=== PATIENT | female | born 1950 | race Caucasian/White ===

== ENCOUNTER 2018-01-20 08:30 | Inpatient (IN) | payer MEDICARE, OTHER ==
[2018-01-27 12:37] VITALS: BMI 29.7
[2018-02-01] MEDS ORDERED: Zolpidem Tartrate 5 MG TAB PO PRN ×2 (06:57→08:45)
[2018-02-01] MEDS ORDERED: Fentanyl 100 MCG/2 ML VIAL SLOW IVP PRN ×2 (06:57)
[2018-02-01] MEDS ORDERED: Ondansetron PF 4 MG/2 ML Vial IVP PRN ×2 (06:57→08:45)
[2018-02-01] MEDS ORDERED: Acetaminophen 325 MG TAB PO PRN (06:57)
[2018-02-01] MEDS ORDERED: traMADol HCl 50 MG TAB PO PRN ×2 (06:57→08:45)
[2018-02-01] MEDS ORDERED: diphenhydrAMINE 25 MG CAP PO PRN ×2 (06:57→08:45)
[2018-02-01] MEDS ORDERED: HYDROcodone/Acetaminophen 10/325 mg Tablet PO PRN ×2 (06:57)
[2018-02-01] MEDS ORDERED: Promethazine HCl 25 MG/ML VIAL IM PRN ×2 (06:57→08:45)
[2018-02-01] MEDS ORDERED: predniSONE 5 MG TAB PO PRN (06:59)
[2018-02-01] MEDS ORDERED: Vancomycin HCl 1.5 GM in Sodium Chloride 0.9% 250 ML 300 ML IVPB SCH (07:00)
[2018-02-01] MEDS ORDERED: CEFAZOLIN/Water 2 GM/20 ML SYRINGE SLOW IVP SCH (07:00)
[2018-02-01] MEDS ORDERED: Alendronate Sodium 70 mg Tablet PO SCH (07:00)
[2018-02-01] MEDS ORDERED: Tranexamic Acid 1,000 MG/10 ML VIAL ONE (07:16)
[2018-02-01] MEDS ORDERED: CEFAZOLIN 2 GM/50 ML BAG ONE (07:16)
[2018-02-01] MEDS ORDERED: Sodium Chloride 0.9% 100 ML ONE (07:16)
[2018-02-01] MEDS ORDERED: Fentanyl 100 MCG/2 ML VIAL ONE ×2 (07:28→09:00)
[2018-02-01] MEDS ORDERED: Midazolam HCl 2 mg/2 ml Vial ONE (07:28)
[2018-02-01] MEDS ORDERED: Propofol 500 MG/50 ML VIAL ONE (08:19)
[2018-02-01] MEDS ORDERED: Naloxone HCl 0.4 mg/ml Vial IVP PRN (08:45)
[2018-02-01] MEDS ORDERED: Bupivacaine 0.25% 10 ML VIAL EPIDURAL PRN (08:45)
[2018-02-01] MEDS ORDERED: HYDROcodone/Acetaminophen 5/325 mg Tablet PO PRN ×2 (08:45)
[2018-02-01] MEDS ORDERED: Promethazine HCl 25 MG SUPP PR PRN (08:45)
[2018-02-01] MEDS ORDERED: diphenhydrAMINE 50 MG/ML VIAL IM PRN (08:45)
[2018-02-01] MEDS ORDERED: Hydrocerin (Eucerin) Cream 120 gm Jar TOP PRN (08:45)
[2018-02-01] MEDS ORDERED: diphenhydrAMINE 50 MG/ML VIAL IVP PRN (08:45)
[2018-02-01] MEDS ORDERED: Naloxone HCl 0.4 mg/ml Vial IV PRN (08:45)
[2018-02-01] MEDS ORDERED: Bupivacaine HCl 0.5%/Epinephrine 1:200,000/PF 30 ml Vial ONE (09:02)
--- NOTE | 2018-02-01 12:20 | RAD ---
TWO VIEW RIGHT HIP: Indication: Post op total hip. FINDINGS: There is a right hip prosthesis without acute hardware complication identified. IMPRESSION: Post-operative right hip. POS: [facility]
--- NOTE | 2018-02-01 13:51 | OP ---
DATE OF PROCEDURE: 02/01/2018 PREOPERATIVE DIAGNOSIS: End-stage bicompartmental osteoarthritis, right hip. POSTOPERATIVE DIAGNOSIS: End-stage bicompartmental osteoarthritis, right hip. PROCEDURE PERFORMED: Press-fit right total hip arthroplasty. SURGEON: Alphonse Portillo MD. MACHINE SEWER: Dale Mckeon PA-C. ANESTHESIA: General via endotracheal tube augmented with indwelling epidural. COMPONENTS USED: [employer] Trident PSL press-fit 52 mm acetabular shell with a 10-degree polyethylene fixed bearing insert, Accolade press-fit size 5.5 hip stem with a Biolox ceramic 36 mm femoral head. ESTIMATED BLOOD LOSS: Less than 50. DRAINS: None. SPECIMENS: None. COMPLICATIONS: None. COUNTS: Correct. INPUT: 1200 crystalloid. OUTPUT: 500 mL of clear yellow urine. INDICATIONS FOR SURGERY: Mariana is a 68-year-old white female, who had had progressive right hip standing and walking for the last 5 to 7 years. She has failed conservative management and elected to proceed with total hip arthroplasty as a definitive treatment for her pain. PROCEDURE IN DETAIL: After informed consent was obtained in the preoperative holding area, the patient was taken to the operative suite where general anesthesia was induced. The patient was then positioned in the lateral decubitus position. The hip was then prepped and draped in usual sterile fashion. The patient received preoperative antibiotics. Prior to incision, time-out was called and all members of the surgical team agreed upon site, surgeon, and patient. After this, a longitudinal incision was made directly over the trochanter, noted by palpation extending 2 fingerbreadths above and below the trochanter. The deeper subcutaneous layer was undermined with Bovie electrocautery. The iliotibial band was encountered and incised sharply and the plane below this was developed bluntly. A Charnley retractor was placed to hold this opened. The lateral aspect of the trochanter and the abductor muscles were encountered and then reflected anteriorly off the trochanter using Bovie electrocautery. Once this was completed, the anterior capsule was then encountered and identified and copious capsulotomy was carried out, exposing the femoral neck and head. Dislocation maneuver was then performed and an in situ provisional neck cut was then made using the oscillating saw. Attention was then turned to acetabular preparation. Sequential reaming was carried out up to the appropriate diameter and a trial was then malleted into place with good firm resistance and no pullout. The permanent acetabular shell was then malleted squarely into place, as was the appropriate liner. Once completed, the wound was copiously irrigated and attention was then turned to femoral preparation. Flexion and external rotation were performed of the exposed thigh and femoral elevators were then placed at the proximal aspect of the wound. Canal finder was used to establish the length of the canal and sequential reaming was carried out, followed by broaching. Once the appropriate stability was established with the trial broaches with flexion, extension and rotational stability, we did trial with neutral and 2 mm offset incremental necks. Once the appropriate size was decided upon, with good stability noted with flexion, extension, internal and external rotation and shuck being negative, we removed the femoral trial broach and malletted into place the permanent prosthesis with good firm fit, which was also stable to rotation. Again, the hip felt very stable to flexion, extension, internal and external rotation. Leg lengths appeared near anatomic clinically and we were quite happy with prosthesis placement. Copious irrigation was then carried out through the entirety of the wound. Primary closure of the abductors was accomplished with interrupted #2 Vicryl [id number] stitches and the IT band was then closed with interrupted #2 Vicryl, oversewn with a #2 running barbed Quill stitch. Subcutaneous fascia was closed with running barbed Quill stitch and a subcuticular Monocryl barbed Quill stitch was used for skin closure and augmented with skin cement. A sterile dressing was applied. The procedure was terminated without any complication. All counts were correct. The patient was awakened in the operative suite and taken to the recovery room in stable condition. Job ID: [id number]
[2018-02-01] MEDS ORDERED: Ketorolac Tromethamine 30 MG/ML VIAL IVP SCH (14:00)
[2018-02-01] MEDS: Sodium Chloride 0.9% 1,000 ML IV SCH ×2 (14:30→17:09)
[2018-02-01] MEDS: Carvedilol 25 MG TAB PO SCH ×2 (14:31→20:58)
[2018-02-01] MEDS: Folic Acid 1 MG TAB PO SCH (14:31)
[2018-02-01] MEDS: Aspirin 81 mg Enteric Coated Tablet PO SCH ×2 (14:31→20:53)
[2018-02-01] MEDS: Calcium Carbonate + Vit D 1 TAB PO SCH ×2 (14:31→20:56)
[2018-02-01] MEDS: Gabapentin 300 MG CAP PO SCH ×2 (14:32→20:56)
[2018-02-01] MEDS: Ketorolac Tromethamine 30 MG/ML VIAL IVP SCH ×3 (14:32→23:43)
[2018-02-01] MEDS ORDERED: Artificial Tear Sol 15 ML BOT EA EYE PRN (14:55)
[2018-02-01] MEDS ORDERED: Diabetic Tussin 200 MG/10 ML UDCUP PO PRN (14:55)
[2018-02-01] MEDS ORDERED: Eucerin (Mineral Oil/Petrolatum,White) 30 gm Jar TOP PRN (14:55)
[2018-02-01] MEDS ORDERED: Sodium Chloride 0.65% Nasal 44 ML BOT EA NARE PRN (14:55)
[2018-02-01] MEDS ORDERED: Cepastat Lozenges 1 LOZ PO PRN (14:55)
[2018-02-01] MEDS ORDERED: Loperamide HCl 2 MG CAP PO PRN (14:55)
[2018-02-01] MEDS ORDERED: hydrALAZINE 20 MG/ML VIAL SLOW IVP PRN (14:55)
--- NOTE | 2018-02-01 14:55 | PDOC.PN ---
- Subjective Encounter Start Date: 02/01/18 Encounter Start Time: 16:00 -: old records requested/rev consulted for medical management Patient seen and examined. No new complaints. - Objective MAR Reviewed: Yes Vital Signs & Weight: Weight Weight 190 lb Additional Labs: old lab and record reviewed Radiology Reviewed by me: Yes (hip xray reviwed) Phys Exam - Physical Examination Constitutional: NAD HEENT: PERRLA, moist MMs, sclera anicteric Neck: no JVD, supple Respiratory: no wheezing, no rales, no rhonchi Cardiovascular: RRR, no significant murmur, no rub Gastrointestinal: soft, non-tender, no distention, positive bowel sounds hill+ , epidural in place Musculoskeletal: no edema, pulses present Neurological: non-focal, normal sensation, moves all 4 limbs Psychiatric: normal affect, A&O x 3 Skin: no rash, normal turgor Dx/Plan (1) Status post total hip replacement, right Code(s): Z96.641 - PRESENCE OF RIGHT ARTIFICIAL HIP JOINT Status: Acute (2) Hypertension Code(s): I10 - ESSENTIAL (PRIMARY) HYPERTENSION Status: Chronic (3) Osteoporosis Code(s): M81.0 - AGE-RELATED OSTEOPOROSIS W/O CURRENT PATHOLOGICAL FRACTURE Status: Chronic (4) Anxiety and depression Code(s): F41.9 - ANXIETY DISORDER, UNSPECIFIED; F32.9 - MAJOR DEPRESSIVE DISORDER, SINGLE EPISODE, UNSPECIFIED Status: Chronic (5) H/O malignant neoplasm of breast Code(s): Z85.3 - PERSONAL HISTORY OF MALIGNANT NEOPLASM OF BREAST Status: Chronic (6) Chronic systolic heart failure, ACC/AHA stage C Code(s): I50.22 - CHRONIC SYSTOLIC (CONGESTIVE) HEART FAILURE Status: Chronic (7) Cardiomyopathy Code(s): I42.9 - CARDIOMYOPATHY, UNSPECIFIED Status: Chronic (8) Rheumatoid arthritis Code(s): M06.9 - RHEUMATOID ARTHRITIS, UNSPECIFIED Status: Chronic - Plan cont current plan of care, plan discussed w/ family, PT/OT * continue aspirin for DVT prophylaxis as per protocol * pepcid for GI prophylaxis * epidural as per anesthesia * PT/OT as per [facility] protocol * medication reviewed as below * symptomatic treatment * pain controlled * code status- full code. * hold BP meds for SBP <120 Review of Systems - Review of Systems ENT: negative: Ear Pain, Ear Discharge, Nose Pain, Nose Discharge, Nose Congestion, Mouth Pain, Mouth Swelling, Throat Pain, Throat Swelling, Other Respiratory: negative: Cough, Dry, Shortness of Breath, Hemoptysis, SOB with Excertion, Pleuritic Pain, Sputum, Wheezing Cardiovascular: negative: chest pain, palpitations, orthopnea, paroxysmal nocturnal dyspnea, edema, light headedness, other Gastrointestinal: negative: Nausea, Vomiting, Abdominal Pain, Diarrhea, Constipation, Melena, Hematochezia, Other Genitourinary: negative: Dysuria, Frequency, Incontinence, Hematuria, Retention , Other Musculoskeletal: negative: Neck Pain, Shoulder Pain, Arm Pain, Back Pain, Hand Pain, Leg Pain, Foot Pain, Other Skin: negative: Rash, Lesions, Jose Alberto, Bruising, Other - Medications/Allergies Allergies/Adverse Reactions: Allergies Allergy/AdvReac Type Severity Reaction Status Date / Time pneumococcal vaccine Allergy arm swelled Verified 01/27/18 12:37 Medications: Current Medications Acetaminophen (Tylenol) 650 mg PO Q4H PRN PRN Reason: Headache/Fever or Pain Hydrocodone Bitart/Acetaminophen ([place] 5/325) 1 tab PO Q4H PRN PRN Reason: Mild Pain 0-3 Hydrocodone Bitart/Acetaminophen ([place] 5/325) 2 tab PO Q4H PRN PRN Reason: For Moderate Pain 4-6 Amitriptyline HCl (Elavil) 25 mg PO HS [facility] Aspirin (Ecotrin) 81 mg PO BID [facility] Last Admin: 02/01/18 14:31 Dose: Not Given Bupivacaine HCl (Marcaine) 5 ml EPIDURAL ONE PRN PRN Reason: UNCONTROLLED PAIN Stop: 02/01/18 23:00 Calcium/Vitamin D (Caltrate 600 + Vit D) 1 tab PO BID [facility] Last Admin: 02/01/18 14:31 Dose: Not Given Carvedilol (Coreg) 25 mg PO BID [facility] Last Admin: 02/01/18 14:31 Dose: Not Given Celecoxib (Celebrex) 200 mg PO DAILY [facility] Cholecalciferol (Vitamin D3) 2,000 units PO DAILY [facility] Last Admin: 02/01/18 14:31 Dose: Not Given Digoxin (Lanoxin) 0.125 mg PO QPM [facility] Diphenhydramine HCl (Benadryl) 25 mg PO Q3H PRN PRN Reason: Itching Diphenhydramine HCl (Benadryl) 25 mg IM Q3H PRN PRN Reason: Itching Diphenhydramine HCl (Benadryl) 25 mg IVP Q3H PRN PRN Reason: Itching Emollient Cream (Hydrocerin Cream) 0 gm TOP PRN PRN PRN Reason: Itching Ferrous Gluconate (Fergon) 324 mg PO BID-[facility] Folic Acid (Folvite) 3 mg PO DAILY [facility] Last Admin: 02/01/18 14:31 Dose: Not Given Gabapentin (Neurontin) 300 mg PO DAILY [facility] Last Admin: 02/01/18 14:32 Dose: Not Given Gabapentin (Neurontin) 600 mg PO HS [facility] Hydrochlorothiazide (Hydrochlorothiazide) 25 mg PO HS [facility] Sodium Chloride (Normal Saline 0.9%) 1,000 mls @ 100 mls/hr IV .Q10H [facility] Last Admin: 02/01/18 14:30 Dose: Not Given Cefazolin Sodium/Dextrose 2 gm (/ Device) 50 mls @ 100 mls/hr IVPB 0700,1500, 2300 [facility] Stop: 02/01/18 23:29 Fentanyl Citrate (Fentanyl/Bupivacaine) 100 mls @ 6 mls/hr EPIDURAL INF [facility] Iron/Minerals/Multivitamins (Theragran M) 1 tab PO DAILY [facility] Ketorolac Tromethamine (Toradol) 15 mg IVP Q6HR [facility] Stop: 02/03/18 06:01 Last Admin: 02/01/18 14:32 Dose: Not Given Methotrexate Sodium (Methotrexate) 0 mg IM .EVERY OTHER WEEK [facility] Miscellaneous Information (Communication Order-Pharmacy) 1 each FS ASDIR [facility] Naloxone HCl (Narcan) 0.2 mg IV Q5MIN PRN PRN Reason: RR <=8 OR OBTUNDED/UNAROUSABLE Naloxone HCl (Narcan) 0.1 mg IVP Q15MIN PRN PRN Reason: URINARY RETENTION Ondansetron HCl (Zofran) 4 mg IVP Q6H PRN PRN Reason: Nausea/Vomiting Prednisone (Prednisone) 2.5 mg PO BID PRN PRN Reason: Pain Promethazine HCl (Phenergan) 12.5 mg IM Q4H PRN PRN Reason: Nausea Promethazine HCl (Phenergan Suppository) 25 mg OR Q4H PRN PRN Reason: Nausea/Vomiting Senna/Docusate Sodium (Senokot S) 2 tab PO BID [facility] Sodium Chloride (Flush - Normal Saline) 10 ml IVF PRN PRN PRN Reason: Saline Flush Tamoxifen Citrate (Nolvadex) 20 mg PO DAILY [facility] Last Admin: 02/01/18 14:32 Dose: Not Given Tramadol HCl (Ultram) 50 mg PO Q6H PRN PRN Reason: Mild Pain 1-3 Tramadol HCl (Ultram) 100 mg PO Q6H PRN PRN Reason: Moderate Pain 4-6 Zolpidem Tartrate (Ambien) 5 mg PO HSPRN PRN PRN Reason: Insomnia
[2018-02-01] MEDS: CEFAZOLIN 2 GM/50 ML-DEXTROSE 2 GM in Premix Bag 1 BAG IVPB SCH ×2 (15:12→23:41)
[2018-02-01] MEDS: Amitriptyline HCl 25 MG TAB PO SCH (20:56)
[2018-02-01] MEDS: Digoxin 0.125 MG TAB PO SCH (20:56)
[2018-02-01] MEDS: Hydrochlorothiazide 25 MG TAB PO SCH (20:58)
[2018-02-02] MEDS: Sodium Chloride 0.9% 1,000 ML IV SCH ×3 (03:55→23:55)
[2018-02-02] MEDS: Fentanyl/Bupivacaine 100 ML EPIDURAL SCH ×2 (04:10→20:03)
[2018-02-02] MEDS: Ketorolac Tromethamine 30 MG/ML VIAL IVP SCH ×4 (05:09→23:16)
[2018-02-02 06:30] LABS: Hemoglobin 11.9 g/dL (12.0-16.0); Mean Corpuscular Hemoglobin 32.7 pg (27.0-31.0); Mean Corpuscular Volume 99.2 fL (78.0-98.0); Mean Platelet Volume 7.7 fL (7.4-10.4); Platelet Count 204 thou/uL (130-400); RBC Distribution Width 12.4 % (11.5-14.5); Red Blood Cell (RBC) Count 3.64 mill/uL (4.20-5.40); White Blood Cell (WBC) Count 10.9 thou/uL (4.8-10.8)
[2018-02-02] MEDS: Ferrous Gluconate 324 MG TAB PO SCH ×2 (08:05→17:05)
[2018-02-02] MEDS: CeleCOXIB 100 MG CAP PO SCH (08:06)
[2018-02-02] MEDS: Calcium Carbonate + Vit D 1 TAB PO SCH ×2 (08:06→20:02)
[2018-02-02] MEDS: Multivitamin W/ Minerals 1 TAB PO SCH (08:06)
[2018-02-02] MEDS: Folic Acid 1 MG TAB PO SCH (08:06)
[2018-02-02] MEDS: Senokot S 8.6-50 MG TAB PO SCH ×2 (08:07→20:02)
[2018-02-02] MEDS: Carvedilol 25 MG TAB PO SCH ×2 (08:08→20:02)
[2018-02-02] MEDS: Gabapentin 300 MG CAP PO SCH ×2 (08:09→20:02)
[2018-02-02] MEDS: Aspirin 81 mg Enteric Coated Tablet PO SCH ×2 (08:09→20:02)
--- NOTE | 2018-02-02 08:59 | PDOC.PN ---
- Subjective Encounter Start Date: 02/02/18 Encounter Start Time: 07:20 Patient seen and examined. No new complaints. No overnight events - Objective Resuscitation Status - Order Detail: 02/01/18 14:56 Resuscitation Status Routine Resuscitation Status: FULL: Full Resuscitation MAR Reviewed: Yes Vital Signs & Weight: Vital Signs (12 hours) Temp Pulse Resp BP Pulse Ox 02/02/18 08:02 98.3 F 82 16 97/63 92 L 02/02/18 03:46 99.2 F 90 18 103/64 95 02/02/18 00:02 98.5 F 89 18 100/62 95 Weight Weight 190 lb I&O: 02/01/18 02/02/18 02/03/18 06:59 06:59 06:59 Intake Total 2130 Output Total 800 Balance 1330 Result Diagrams: 02/02/18 06:02 Phys Exam - Physical Examination Constitutional: NAD HEENT: PERRLA, moist MMs, sclera anicteric Neck: no JVD, supple Respiratory: no wheezing, no rales, no rhonchi Cardiovascular: RRR, no significant murmur, no rub Gastrointestinal: soft, non-tender, no distention, positive bowel sounds epidural in place, hill+ Musculoskeletal: no edema, pulses present Neurological: non-focal, normal sensation, moves all 4 limbs Lymphatic: no nodes Psychiatric: normal affect, A&O x 3 Skin: no rash, normal turgor Dx/Plan (1) Status post total hip replacement, right Code(s): Z96.641 - PRESENCE OF RIGHT ARTIFICIAL HIP JOINT Status: Acute (2) Hypertension Code(s): I10 - ESSENTIAL (PRIMARY) HYPERTENSION Status: Chronic (3) Osteoporosis Code(s): M81.0 - AGE-RELATED OSTEOPOROSIS W/O CURRENT PATHOLOGICAL FRACTURE Status: Chronic (4) Anxiety and depression Code(s): F41.9 - ANXIETY DISORDER, UNSPECIFIED; F32.9 - MAJOR DEPRESSIVE DISORDER, SINGLE EPISODE, UNSPECIFIED Status: Chronic (5) H/O malignant neoplasm of breast Code(s): Z85.3 - PERSONAL HISTORY OF MALIGNANT NEOPLASM OF BREAST Status: Chronic (6) Chronic systolic heart failure, ACC/AHA stage C Code(s): I50.22 - CHRONIC SYSTOLIC (CONGESTIVE) HEART FAILURE Status: Chronic (7) Cardiomyopathy Code(s): I42.9 - CARDIOMYOPATHY, UNSPECIFIED Status: Chronic (8) Rheumatoid arthritis Code(s): M06.9 - RHEUMATOID ARTHRITIS, UNSPECIFIED Status: Chronic (9) Macrocytic anemia Code(s): D53.9 - NUTRITIONAL ANEMIA, UNSPECIFIED Status: Chronic - Plan cont current plan of care * medically stable * medication reviewed as below * symptomatic treatment * pain controlled * continue aspirin 81 mg po bid * epidural as per anesthesia * she is doing well * continue PT. Review of Systems - Review of Systems ENT: negative: Ear Pain, Ear Discharge, Nose Pain, Nose Discharge, Nose Congestion, Mouth Pain, Mouth Swelling, Throat Pain, Throat Swelling, Other Respiratory: negative: Cough, Dry, Shortness of Breath, Hemoptysis, SOB with Excertion, Pleuritic Pain, Sputum, Wheezing Cardiovascular: negative: chest pain, palpitations, orthopnea, paroxysmal nocturnal dyspnea, edema, light headedness, other Gastrointestinal: negative: Nausea, Vomiting, Abdominal Pain, Diarrhea, Constipation, Melena, Hematochezia, Other Genitourinary: negative: Dysuria, Frequency, Incontinence, Hematuria, Retention , Other Musculoskeletal: negative: Neck Pain, Shoulder Pain, Arm Pain, Back Pain, Hand Pain, Leg Pain, Foot Pain, Other Skin: negative: Rash, Lesions, Jose Alberto, Bruising, Other - Medications/Allergies Allergies/Adverse Reactions: Allergies Allergy/AdvReac Type Severity Reaction Status Date / Time pneumococcal vaccine Allergy arm swelled Verified 01/27/18 12:37 Medications: Current Medications Acetaminophen (Tylenol) 650 mg PO Q4H PRN PRN Reason: Headache/Fever or Pain Hydrocodone Bitart/Acetaminophen ([place] 5/325) 1 tab PO Q4H PRN PRN Reason: Mild Pain 0-3 Hydrocodone Bitart/Acetaminophen ([place] 5/325) 2 tab PO Q4H PRN PRN Reason: For Moderate Pain 4-6 Amitriptyline HCl (Elavil) 25 mg PO HS [facility] Last Admin: 02/01/18 20:56 Dose: 25 mg Artificial Tears (Tears Renewed 15ml Bottle) 2 drop EA EYE PRN PRN PRN Reason: Dry Eyes Aspirin (Ecotrin) 81 mg PO BID [facility] Last Admin: 02/02/18 08:09 Dose: 81 mg Calcium/Vitamin D (Caltrate 600 + Vit D) 1 tab PO BID [facility] Last Admin: 02/02/18 08:06 Dose: 1 tab Carvedilol (Coreg) 25 mg PO BID [facility] Last Admin: 02/02/18 08:08 Dose: 25 mg Celecoxib (Celebrex) 200 mg PO DAILY [facility] Last Admin: 02/02/18 08:06 Dose: 200 mg Cholecalciferol (Vitamin D3) 2,000 units PO DAILY [facility] Last Admin: 02/02/18 08:08 Dose: 2,000 units Digoxin (Lanoxin) 0.125 mg PO QPM [facility] Last Admin: 02/01/18 20:56 Dose: 0.125 mg Diphenhydramine HCl (Benadryl) 25 mg PO Q3H PRN PRN Reason: Itching Diphenhydramine HCl (Benadryl) 25 mg IM Q3H PRN PRN Reason: Itching Diphenhydramine HCl (Benadryl) 25 mg IVP Q3H PRN PRN Reason: Itching Emollient Cream (Hydrocerin Cream) 0 gm TOP PRN PRN PRN Reason: Itching Ferrous Gluconate (Fergon) 324 mg PO BID-[facility] Last Admin: 02/02/18 08:05 Dose: 324 mg Folic Acid (Folvite) 3 mg PO DAILY [facility] Last Admin: 02/02/18 08:06 Dose: 3 mg Gabapentin (Neurontin) 300 mg PO DAILY [facility] Last Admin: 02/02/18 08:09 Dose: 300 mg Gabapentin (Neurontin) 600 mg PO [facility] Last Admin: 02/01/18 20:56 Dose: 600 mg Guaifenesin (Robitussin Sf) 200 mg PO Q4H PRN PRN Reason: Cough Hydralazine HCl (Apresoline) 10 mg SLOW IVP Q4H PRN PRN Reason: SBP > 180 and HR < 70 Hydrochlorothiazide (Hydrochlorothiazide) 25 mg PO [facility] Last Admin: 02/01/18 20:58 Dose: 25 mg Sodium Chloride (Normal Saline 0.9%) 1,000 mls @ 100 mls/hr IV .Q10H [facility] Last Admin: 02/02/18 03:55 Dose: Not Given Fentanyl Citrate (Fentanyl/Bupivacaine) 100 mls @ 6 mls/hr EPIDURAL INF [facility] Last Admin: 02/02/18 04:10 Dose: 100 mls Iron/Minerals/Multivitamins (Theragran M) 1 tab PO DAILY [facility] Last Admin: 02/02/18 08:06 Dose: 1 tab Ketorolac Tromethamine (Toradol) 15 mg IVP Q6HR [facility] Stop: 02/03/18 06:01 Last Admin: 02/02/18 05:09 Dose: 15 mg Loperamide HCl (Imodium) 2 mg PO PRN PRN PRN Reason: Diarrhea/Loose Stools Methotrexate Sodium (Methotrexate) 20 mg IM .EVERY OTHER WEEK [facility] Mineral Oil/White Petrolatum (Eucerin Cream) 0 gm TOP BIDPRN PRN PRN Reason: Dry Skin Miscellaneous Information (Communication Order-Pharmacy) 1 each FS ASDIR [facility] Naloxone HCl (Narcan) 0.2 mg IV Q5MIN PRN PRN Reason: RR <=8 OR OBTUNDED/UNAROUSABLE Naloxone HCl (Narcan) 0.1 mg IVP Q15MIN PRN PRN Reason: URINARY RETENTION Ondansetron HCl (Zofran) 4 mg IVP Q6H PRN PRN Reason: Nausea/Vomiting Prednisone (Prednisone) 2.5 mg PO BID PRN PRN Reason: Pain Promethazine HCl (Phenergan) 12.5 mg IM Q4H PRN PRN Reason: Nausea Promethazine HCl (Phenergan Suppository) 25 mg PA Q4H PRN PRN Reason: Nausea/Vomiting Senna/Docusate Sodium (Senokot S) 2 tab PO BID [facility] Last Admin: 02/02/18 08:07 Dose: 2 tab Sodium Chloride (Flush - Normal Saline) 10 ml IVF PRN PRN PRN Reason: Saline Flush Sodium Chloride ([place] 0.65%) 0 ml EA NARE QIDPRN PRN PRN Reason: Nasal Congestion Tamoxifen Citrate (Nolvadex) 20 mg PO DAILY [facility] Last Admin: 02/02/18 08:08 Dose: 20 mg Throat Lozenges (Cepastat Lozenges) 1 deepak PO Q2H PRN PRN Reason: Sore Throat Tramadol HCl (Ultram) 50 mg PO Q6H PRN PRN Reason: Mild Pain 1-3 Tramadol HCl (Ultram) 100 mg PO Q6H PRN PRN Reason: Moderate Pain 4-6 Zolpidem Tartrate (Ambien) 5 mg PO HSPRN PRN PRN Reason: Insomnia
[2018-02-02] MEDS: Amitriptyline HCl 25 MG TAB PO SCH (20:02)
[2018-02-02] MEDS: Digoxin 0.125 MG TAB PO SCH (20:02)
[2018-02-02] MEDS: Hydrochlorothiazide 25 MG TAB PO SCH (20:02)
[2018-02-02] MEDS ORDERED: Bupivacaine 10 ML in Sodium Chloride 0.9% 90 ML EPIDURAL SCH (22:30)
[2018-02-03] MEDS ORDERED: Sodium Chloride 0.9% 500 ML IV SCH (06:30)
[2018-02-03 06:41] LABS: Hemoglobin 11.6 g/dL (12.0-16.0); Mean Corpuscular HGB CONC 33.9 g/dL (32.0-36.0); Mean Corpuscular Hemoglobin 33.5 pg (27.0-31.0); Mean Corpuscular Volume 98.7 fL (78.0-98.0); Platelet Count 172 thou/uL (130-400); RBC Distribution Width 12.3 % (11.5-14.5); Red Blood Cell (RBC) Count 3.46 mill/uL (4.20-5.40); White Blood Cell (WBC) Count 10.5 thou/uL (4.8-10.8)
[2018-02-03] MEDS: Ketorolac Tromethamine 30 MG/ML VIAL IVP SCH (06:44)
[2018-02-03] MEDS: Senokot S 8.6-50 MG TAB PO SCH ×2 (10:16→21:09)
[2018-02-03] MEDS: Ferrous Gluconate 324 MG TAB PO SCH ×2 (10:16→15:31)
[2018-02-03] MEDS: Multivitamin W/ Minerals 1 TAB PO SCH (10:16)
[2018-02-03] MEDS: Aspirin 81 mg Enteric Coated Tablet PO SCH ×2 (10:17→21:08)
[2018-02-03] MEDS: Folic Acid 1 MG TAB PO SCH (10:17)
[2018-02-03] MEDS: CeleCOXIB 100 MG CAP PO SCH (10:18)
[2018-02-03] MEDS: Calcium Carbonate + Vit D 1 TAB PO SCH ×2 (10:19→21:09)
[2018-02-03] MEDS: Carvedilol 25 MG TAB PO SCH (10:19)
[2018-02-03] MEDS: Sodium Chloride 0.9% 1,000 ML IV SCH (10:20)
[2018-02-03] MEDS: Gabapentin 300 MG CAP PO SCH ×2 (10:20→21:08)
--- NOTE | 2018-02-03 11:21 | PDOC.PN ---
- Subjective Encounter Start Date: 02/03/18 Encounter Start Time: 08:20 -: old records requested/rev Patient seen and examined. No overnight events today she feels weak, she is sleepy, tired - Objective Resuscitation Status - Order Detail: 02/01/18 14:56 Resuscitation Status Routine Resuscitation Status: FULL: Full Resuscitation MAR Reviewed: Yes Vital Signs & Weight: Vital Signs (12 hours) Temp Pulse Resp BP Pulse Ox 02/03/18 07:27 100.6 F H 83 18 88/52 L 93 L 02/03/18 04:15 99.1 F 86 16 106/54 L 94 L 02/03/18 00:20 99.1 F 79 18 110/67 92 L Weight Admit Weight 190 lb Weight 190 lb I&O: 02/02/18 02/03/18 02/04/18 06:59 06:59 06:59 Intake Total 2130 1500 Output Total 800 1100 Balance 1330 400 Result Diagrams: 02/03/18 06:07 Phys Exam - Physical Examination Constitutional: NAD HEENT: PERRLA, moist MMs, sclera anicteric Neck: no JVD, supple Respiratory: no wheezing, no rales, no rhonchi Cardiovascular: RRR, no significant murmur, no rub Gastrointestinal: soft, non-tender, no distention, positive bowel sounds Musculoskeletal: no edema, pulses present epidural in place, surgical site clean Neurological: non-focal, normal sensation, moves all 4 limbs Psychiatric: normal affect, A&O x 3 Skin: no rash, normal turgor Dx/Plan (1) Status post total hip replacement, right Code(s): Z96.641 - PRESENCE OF RIGHT ARTIFICIAL HIP JOINT Status: Acute (2) Hypertension Code(s): I10 - ESSENTIAL (PRIMARY) HYPERTENSION Status: Chronic (3) Osteoporosis Code(s): M81.0 - AGE-RELATED OSTEOPOROSIS W/O CURRENT PATHOLOGICAL FRACTURE Status: Chronic (4) Anxiety and depression Code(s): F41.9 - ANXIETY DISORDER, UNSPECIFIED; F32.9 - MAJOR DEPRESSIVE DISORDER, SINGLE EPISODE, UNSPECIFIED Status: Chronic (5) H/O malignant neoplasm of breast Code(s): Z85.3 - PERSONAL HISTORY OF MALIGNANT NEOPLASM OF BREAST Status: Chronic (6) Chronic systolic heart failure, ACC/AHA stage C Code(s): I50.22 - CHRONIC SYSTOLIC (CONGESTIVE) HEART FAILURE Status: Chronic (7) Cardiomyopathy Code(s): I42.9 - CARDIOMYOPATHY, UNSPECIFIED Status: Chronic (8) Rheumatoid arthritis Code(s): M06.9 - RHEUMATOID ARTHRITIS, UNSPECIFIED Status: Chronic (9) Macrocytic anemia Code(s): D53.9 - NUTRITIONAL ANEMIA, UNSPECIFIED Status: Chronic - Plan cont current plan of care, plan discussed w/ family, PT/OT * her weakness/tiredness is multifectorial, will prefer if epidural not needed then it can be removed * medication reviewed as below * symptomatic treatment * continue PT * discussed with * will monitor today * hold BP meds for low BP. Review of Systems - Review of Systems Constitutional: weakness. negative: fever, chills, sweats, malaise, other ENT: negative: Ear Pain, Ear Discharge, Nose Pain, Nose Discharge, Nose Congestion, Mouth Pain, Mouth Swelling, Throat Pain, Throat Swelling, Other Respiratory: negative: Cough, Dry, Shortness of Breath, Hemoptysis, SOB with Excertion, Pleuritic Pain, Sputum, Wheezing Cardiovascular: negative: chest pain, palpitations, orthopnea, paroxysmal nocturnal dyspnea, edema, light headedness, other Gastrointestinal: negative: Nausea, Vomiting, Abdominal Pain, Diarrhea, Constipation, Melena, Hematochezia, Other Genitourinary: negative: Dysuria, Frequency, Incontinence, Hematuria, Retention , Other Musculoskeletal: negative: Neck Pain, Shoulder Pain, Arm Pain, Back Pain, Hand Pain, Leg Pain, Foot Pain, Other - Medications/Allergies Allergies/Adverse Reactions: Allergies Allergy/AdvReac Type Severity Reaction Status Date / Time pneumococcal vaccine Allergy arm swelled Verified 01/27/18 12:37 Medications: Current Medications Acetaminophen (Tylenol) 650 mg PO Q4H PRN PRN Reason: Headache/Fever or Pain Hydrocodone Bitart/Acetaminophen (Farrar 5/325) 1 tab PO Q4H PRN PRN Reason: Mild Pain 0-3 Hydrocodone Bitart/Acetaminophen (Farrar 5/325) 2 tab PO Q4H PRN PRN Reason: For Moderate Pain 4-6 Amitriptyline HCl (Elavil) 25 mg PO HS NATHAN Last Admin: 02/02/18 20:02 Dose: 25 mg Artificial Tears (Tears Renewed 15ml Bottle) 2 drop EA EYE PRN PRN PRN Reason: Dry Eyes Aspirin (Ecotrin) 81 mg PO BID [facility] Last Admin: 02/03/18 10:17 Dose: 81 mg Calcium/Vitamin D (Caltrate 600 + Vit D) 1 tab PO BID [facility] Last Admin: 02/03/18 10:19 Dose: 1 tab Carvedilol (Coreg) 25 mg PO BID [facility] Last Admin: 02/03/18 10:19 Dose: Not Given Celecoxib (Celebrex) 200 mg PO DAILY [facility] Last Admin: 02/03/18 10:18 Dose: Not Given Cholecalciferol (Vitamin D3) 2,000 units PO DAILY [facility] Last Admin: 02/03/18 10:16 Dose: 2,000 units Digoxin (Lanoxin) 0.125 mg PO QPM [facility] Last Admin: 02/02/18 20:02 Dose: 0.125 mg Diphenhydramine HCl (Benadryl) 25 mg PO Q3H PRN PRN Reason: Itching Diphenhydramine HCl (Benadryl) 25 mg IM Q3H PRN PRN Reason: Itching Diphenhydramine HCl (Benadryl) 25 mg IVP Q3H PRN PRN Reason: Itching Emollient Cream (Hydrocerin Cream) 0 gm TOP PRN PRN PRN Reason: Itching Ferrous Gluconate (Fergon) 324 mg PO BID[facility] Last Admin: 02/03/18 10:16 Dose: 324 mg Folic Acid (Folvite) 3 mg PO DAILY [facility] Last Admin: 02/03/18 10:17 Dose: 3 mg Gabapentin (Neurontin) 300 mg PO DAILY [facility] Last Admin: 02/03/18 10:20 Dose: Not Given Gabapentin (Neurontin) 600 mg PO [facility] Last Admin: 02/02/18 20:02 Dose: 600 mg Guaifenesin (Robitussin Sf) 200 mg PO Q4H PRN PRN Reason: Cough Hydralazine HCl (Apresoline) 10 mg SLOW IVP Q4H PRN PRN Reason: SBP > 180 and HR < 70 Hydrochlorothiazide (Hydrochlorothiazide) 25 mg PO HS [facility] Last Admin: 02/02/18 20:02 Dose: 25 mg Sodium Chloride (Normal Saline 0.9%) 1,000 mls @ 100 mls/hr IV .Q10H [facility] Last Admin: 02/03/18 10:20 Dose: Not Given Bupivacaine HCl 10 ml/ Sodium (Chloride) 100 mls @ 6 mls/hr EPIDURAL INF [facility] Last Admin: 02/02/18 23:11 Dose: 100 mls Iron/Minerals/Multivitamins (Theragran M) 1 tab PO DAILY [facility] Last Admin: 02/03/18 10:16 Dose: 1 tab Loperamide HCl (Imodium) 2 mg PO PRN PRN PRN Reason: Diarrhea/Loose Stools Methotrexate Sodium (Methotrexate) 20 mg IM .EVERY OTHER WEEK [facility] Mineral Oil/White Petrolatum (Eucerin Cream) 0 gm TOP BIDPRN PRN PRN Reason: Dry Skin Miscellaneous Information (Communication Order-Pharmacy) 1 each FS ASDIR [facility] Naloxone HCl (Narcan) 0.2 mg IV Q5MIN PRN PRN Reason: RR <=8 OR OBTUNDED/UNAROUSABLE Naloxone HCl (Narcan) 0.1 mg IVP Q15MIN PRN PRN Reason: URINARY RETENTION Ondansetron HCl (Zofran) 4 mg IVP Q6H PRN PRN Reason: Nausea/Vomiting Prednisone (Prednisone) 2.5 mg PO BID PRN PRN Reason: Pain Promethazine HCl (Phenergan) 12.5 mg IM Q4H PRN PRN Reason: Nausea Promethazine HCl (Phenergan Suppository) 25 mg [place] Q4H PRN PRN Reason: Nausea/Vomiting Senna/Docusate Sodium (Senokot S) 2 tab PO BID [facility] Last Admin: 02/03/18 10:16 Dose: 2 tab Sodium Chloride (Flush - Normal Saline) 10 ml IVF PRN PRN PRN Reason: Saline Flush Sodium Chloride ([place] Nasal [place] 0.65%) 0 ml EA NARE QIDPRN PRN PRN Reason: Nasal Congestion Tamoxifen Citrate (Nolvadex) 20 mg PO DAILY [facility] Last Admin: 02/03/18 10:17 Dose: 20 mg Throat Lozenges (Cepastat Lozenges) 1 deepak PO Q2H PRN PRN Reason: Sore Throat Tramadol HCl (Ultram) 50 mg PO Q6H PRN PRN Reason: Mild Pain 1-3 Tramadol HCl (Ultram) 100 mg PO Q6H PRN PRN Reason: Moderate Pain 4-6 Zolpidem Tartrate (Ambien) 5 mg PO HSPRN PRN PRN Reason: Insomnia
--- NOTE | 2018-02-03 13:26 | RAD ---
PORTABLE CHEST: 02/03/18 HISTORY: CHF. COMPARISON: 01/27/18. There is hazy infiltrate in both lower lobes which appears new. Some of this may represent atelectasi s; however, inflammatory infiltrates should be considered. There is mild vascular engorgement. Mild c ardiomegaly. IMPRESSION: Evidence of new bibasilar infiltrates and/or atelectasis with mild vascular congestion. POS: [facility]
[2018-02-03] MEDS ORDERED: Furosemide 20 MG/2 ML VIAL SLOW IVP SCH (15:45)
[2018-02-03 16:46] LABS: Lactic Acid 0.8 mmol/L (0.5-2.2)
[2018-02-03 16:49] LABS: Anion Gap 11 mmol/L (10-20); BUN (Urea Nitrogen) 17 mg/dL (9.8-20.1); Calc. Creatinine Clearance 78 mL/min (70-130); Calcium 9.4 mg/dL (7.8-10.44); Carbon Dioxide 30 mmol/L (23-31); Chloride 97 mmol/L (98-107); Estimated GFR-MDRD 61; Glucose 101 mg/dL (80-115); Potassium 3.9 mmol/L (3.5-5.1); Sodium 134 mmol/L (136-145)
[2018-02-03] MEDS: Digoxin 0.125 MG TAB PO SCH (21:08)
[2018-02-03] MEDS: Amitriptyline HCl 25 MG TAB PO SCH (21:08)
[2018-02-03] MEDS: traMADol HCl 50 MG TAB PO PRN (21:11)
[2018-02-04 06:37] LABS: #Eosinphils 0.2 thou/uL (0.0-0.7); #Lymphocytes 1.3 thou/uL (1.20-3.40); #Neutrophils 6.5 thou/uL (1.40-6.50); %Basophils 0.4 % (0.0-1.0); %Eosinophils 2.1 % (0.0-10.0); %Lymphocytes 14.9 % (21.0-51.0); %Monocytes 10.6 % (0.0-10.0); Hemoglobin 10.4 g/dL (12.0-16.0); Mean Corpuscular HGB CONC 34.1 g/dL (32.0-36.0); Mean Corpuscular Hemoglobin 33.2 pg (27.0-31.0); Mean Corpuscular Volume 97.5 fL (78.0-98.0); Platelet Count 161 thou/uL (130-400); RBC Distribution Width 12.1 % (11.5-14.5); Red Blood Cell (RBC) Count 3.13 mill/uL (4.20-5.40)
[2018-02-04 06:53] LABS: Anion Gap 11 mmol/L (10-20); BUN (Urea Nitrogen) 12 mg/dL (9.8-20.1); Calc. Creatinine Clearance 95 mL/min (70-130); Calcium 8.8 mg/dL (7.8-10.44); Carbon Dioxide 29 mmol/L (23-31); Chloride 98 mmol/L (98-107); Estimated GFR-MDRD 76; Glucose 90 mg/dL (80-115); Potassium 3.3 mmol/L (3.5-5.1); Sodium 135 mmol/L (136-145)
[2018-02-04] MEDS ORDERED: Potassium Chloride 20 MEQ TAB PO SCH (07:30)
[2018-02-04] MEDS ORDERED: Furosemide 20 MG/2 ML VIAL SLOW IVP SCH (08:00)
[2018-02-04 08:35] LABS: ALT (SGPT) 10 U/L (8-55); AST (SGOT) 23 U/L (5-34); Albumin 2.6 g/dL (3.4-4.8); Alkaline Phosphatase 33 U/L (40-150); Bilirubin, Direct 0.3 mg/dL (0.1-0.3); Bilirubin, Total 0.6 mg/dL (0.2-1.2); Protein, Total 5.2 g/dL (6.0-8.3)
[2018-02-04] MEDS: Calcium Carbonate + Vit D 1 TAB PO SCH (09:47)
[2018-02-04] MEDS: Folic Acid 1 MG TAB PO SCH (09:47)
[2018-02-04] MEDS: Ferrous Gluconate 324 MG TAB PO SCH (09:47)
[2018-02-04] MEDS: CeleCOXIB 100 MG CAP PO SCH (09:47)
[2018-02-04] MEDS: Gabapentin 300 MG CAP PO SCH (09:48)
[2018-02-04] MEDS: Aspirin 81 mg Enteric Coated Tablet PO SCH (09:48)
[2018-02-04] MEDS: Multivitamin W/ Minerals 1 TAB PO SCH (09:48)
[2018-02-04] MEDS: Senokot S 8.6-50 MG TAB PO SCH (09:48)
[2018-02-04] MEDS: traMADol HCl 50 MG TAB PO PRN (10:10)
--- NOTE | 2018-02-04 11:28 | CON ---
DATE OF CONSULTATION: 02/03/2018 REASON FOR CONSULTATION: Heart failure. HISTORY OF PRESENT ILLNESS: This is a very pleasant 68-year-old woman, who was seen and evaluated in the past. She was last seen in 2016. She is from [place], [place], [place] is near [place]. Her instructional support specialist is Dr. Dane Jade. She was last seen and evaluated in 2016, where she had an LVEF of 35% to 40%. This appeared to be slightly improved from previous. She did undergo coronary angiography in 2016. They did not suggest significant coronary artery disease. She recently had hip replacement. In the postoperative period, she did well for the first 24 hours. After 24 hours, she had increased confusion in addition to somnolence. No significant episodes of shortness of breath, chest pain, pressure, or other associated symptoms. There was concern for recurrent heart failure. This is how she presented initially in 2016. PAST MEDICAL HISTORY: As above, including hypertension, knee surgery, appendectomy, recent hip surgery, hysterectomy, hemorrhoidectomy, lumpectomy, hypertension. ALLERGIES: PENICILLIN. HOME MEDICATIONS: Include, 1. Celebrex. 2. Alendronate. 3. Gabapentin. 4. Folic acid. 5. Tamoxifen. 6. Gabapentin. 7. Carvedilol. 8. Tramadol. 9. Hydrochlorothiazide. 10. Digoxin. 11. Amitriptyline. 12. Prednisone. 13. Actemra. REVIEW OF SYSTEMS: Ten-point review of systems is reviewed and is negative. PHYSICAL EXAMINATION: GENERAL: The patient is a pleasant female, who is in no acute distress. The patient appears their stated age. VITAL SIGNS: Blood pressure 105/66, pulse 97, temperature 100.8. NEUROLOGIC: The patient is alert and oriented x3 with no focal neurologic deficits. HEENT: Sclerae without icterus. Mouth has moist mucous membranes with normal pallor. NECK: No JVD. Carotid upstroke brisk. No bruits bilaterally. LUNGS: Clear to auscultation with unlabored respirations. No crackles noted bilaterally. BACK: No scoliosis or kyphosis. CARDIAC: Regular rate and rhythm with normal S1 and S2. No S3 or S4 noted. No significant rubs, murmurs, thrills, or gallops noted throughout the precordium. PMI is not displaced. There is no parasternal heave. ABDOMEN: Soft, nontender, nondistended. No peritoneal signs present. No hepatosplenomegaly. No abnormal striae. EXTREMITIES: 2+ femoral and 2+ dorsalis pedis pulses. No cyanosis, clubbing, or edema. SKIN: No gross abnormalities. Patient is lungs are crackles noted bilaterally. PERTINENT LABS: Hemoglobin 10.4, platelet count 161. Creatinine 0.75, potassium 3.9. BNP of 45. IMPRESSION: 1. Acute on chronic systolic heart failure. 2. Recent hip surgery. RECOMMENDATIONS: Ms. Pak does have chest x-ray suggesting atelectasis versus mild pulmonary congestion. Despite her being low, she does have crackles noted bilaterally. She has received one dose of Lasix 20 mg IV. She has had significant improvement. We will reassess in a.m. and likely give another dose of 20 mg IV. All of her symptoms may be multifactorial. She has had little sleep, may also be consistent with sundowning and mild congestive heart failure. This may also be the residual from recent anesthesia. She is improving. Job ID: [id number]
[2018-02-04 11:33] VITALS: BP 101/60; TEMP 98.4
--- NOTE | 2018-02-04 12:52 | PRG ---
DATE OF SERVICE: 02/04/2018 DISCHARGE SUMMARY/PROGRESS NOTE: PRIMARY CARE PHYSICIAN: [facility] Call admission. DISCHARGE DISPOSITION: Home. PRIMARY DISCHARGE DIAGNOSES: 1. Status post right total hip replacement. 2. Generalized weakness with hypotension. 3. Hypokalemia. SECONDARY DISCHARGE DIAGNOSES: 1. Cardiomyopathy. 2. Chronic systolic heart failure with stage C. 3. Anxiety and depression. 4. Rheumatoid arthritis. 5. History of malignant neoplasm of breast. 6. Hypertension. 7. Macrocytic anemia. 8. Osteoporosis. 9. Osteoarthritis. PRIMARY PROCEDURE/OPERATION: Right total hip replacement. RADIOLOGIST INVESTIGATION: Hip x-ray, chest x-ray showed pulmonary vascular congestion and atelectasis. SIGNIFICANT LABORATORY DATA: WBC 9.0, hemoglobin 10.4, and platelet 161. Sodium 135, potassium 3.3, BUN 12, and creatinine 0.75. LFT normal. BNP 45.7, cortisol 10.2. Lactic acid 0.8. DISCHARGE MEDICATIONS: The patient will continue all her previous medications. I have specifically advised the patient to hold on blood pressure medication if the blood pressure is less than 120/80. The patient is on following medications: 1. Alendronate 70 mg weekly. 2. Amitriptyline 25 mg at bedtime. 3. Calcium with vitamin D 1 tablet p.o. b.i.d. 4. Coreg 25 mg p.o. b.i.d. 5. Celebrex 200 mg p.o. daily. 6. Vitamin D3 of 2000 units p.o. daily. 7. Digoxin 125 mcg p.o. daily. 8. Folic acid 2 mg daily. 9. Gabapentin 600 mg p.o. at bedtime and 300 mg in the morning. 10. Hydrochlorothiazide 25 mg p.o. daily. 11. Prednisone 2.5 mg b.i.d. p.r.n. 12. Tamoxifen 20 mg daily. 13. Tocilizumab 200 mg IV per bag as directed. 14. Tramadol 200 mg p.o. daily. 15. [place] 5 one tablet q.4 hourly p.r.n. 16. Aspirin 81 mg p.o. b.i.d. CONTRAINDICATION: None. CODE STATUS: Full code. INPATIENT NET APPLICATION SUPPORT SPECIALIST: Dr. Portillo was primary while in the hospital, [employer] Team was consulted for medical comanagement. Dr. Hunter was consulted while in the hospital. TEST RESULTS PENDING ON DISCHARGE: None. ALLERGIES: PNEUMOCOCCAL VACCINE. DISCHARGE PLAN: Post hospital, the patient will follow up with Dr. Portillo on February 17, 2018, at 3:30 p.m. HOSPITAL COURSE: A 68-year-old female with above-mentioned medical problem, who was electively admitted for right total hip replacement, which was done by Dr. Portillo. The patient did not have any complication while in the hospital. She had epidural in place. Her pain was controlled with pain medication. Postoperative day 1, the patient was doing great, but postoperative day 2, the patient was feeling generalized weakness and was having low-grade fever. We did a chest x-ray, which showed pulmonary vascular congestion. She was also having relatively low blood pressure and that is why she was given bolus of fluid that made her pulmonary vascular congestion. Dr. Hunter was consulted, and he gave the patient Lasix, and after Lasix, the patient's condition significantly improved. We held her blood pressure medication. Necessary patient education about holding blood pressure medication at home was also discussed with the patient and her . While in hospital, medical team was consulted for medical comanagement. Her all medical problems remained stable except for relatively low blood pressure and generalized weakness, but that also improved by the time of discharge. The patient had epidural, which was removed before discharge. I have seen and examined the patient at bedside today. Plan of care discussed with the patient and her at bedside. REVIEW OF SYSTEMS: All review of systems reviewed with her and negative. PHYSICAL EXAMINATION: VITAL SIGNS: Currently, temperature 98.4, pulse 79, respiratory rate 18, saturation 92% on room air, blood pressure 107/67, and weight 190 pounds. GENERAL: The patient is currently alert and awake. No obvious acute distress. HEENT: Head, normocephalic and atraumatic. Eyes; pupils round and reactive to light. Extraocular muscle intact. ENT; oropharynx within normal limits. Moist mucous membranes. No oral lesion. No pharyngeal erythema. No exudate. NECK: Supple. No JVD. No thyromegaly. No carotid bruit. No jugular venous distention. LUNGS: Clear to auscultation without any rhonchi. Rales noted on the right lung base. ABDOMEN: Soft and benign. EXTREMITIES: No edema. Surgical site is clean and healthy. We will sign off. Job ID: [id number]
== END 2018-02-04 14:20 | disposition home or self-care (01) | DRG 469 ==
LOC: SURG A 02-01 06:16 → SJJU 02-01 13:12
PROVIDERS: ADMIT Orthopaedic Surgery; ATTEND Orthopaedic Surgery
PROC: 0SR90JA Replacement of Right Hip Joint with Synthetic Substitute, Uncemented, Open Approach (ICD-10-PCS; principal; 2018-02-01)
DX: M16.11 Unilateral primary osteoarthritis, right hip (principal); I50.23 Acute on chronic systolic (congestive) heart failure; I42.9 Cardiomyopathy, unspecified; M81.0 Age-related osteoporosis without current pathological fracture; F41.9 Anxiety disorder, unspecified; F32.9 Major depressive disorder, single episode, unspecified; I11.0 Hypertensive heart disease with heart failure; Z85.3 Personal history of malignant neoplasm of breast; D53.9 Nutritional anemia, unspecified
CPT/HCPCS: 36415; 71045; 80048; 80076; 82533; 83605; 83880; 85025; 85027; G8978-GP-CK; G8979-GP-CI; G8987-GO-CK; G8988-GO-CI; J0670; J1885; J1940; J2250; J2704; J3010; J3370; J3490; J7050

== ENCOUNTER 2018-01-27 12:17 | Outpatient (CLI) | payer MEDICARE, OTHER ==
[2018-01-27 14:11] LABS: #Eosinphils 0.2 thou/uL (0.0-0.7); #Monocytes 0.7 thou/uL (0.11-0.59); #Neutrophils 5.3 thou/uL (1.40-6.50); %Basophils 0.5 % (0.0-1.0); %Eosinophils 2.6 % (0.0-10.0); %Lymphocytes 24.7 % (21.0-51.0); %Monocytes 8.4 % (0.0-10.0); %Neutrophils 63.9 % (42.0-75.0); Hemoglobin 14.1 g/dL (12.0-16.0); Mean Corpuscular HGB CONC 33.1 g/dL (32.0-36.0); Mean Corpuscular Volume 99.8 fL (78.0-98.0); Mean Platelet Volume 7.9 fL (7.4-10.4); Platelet Count 226 thou/uL (130-400); RBC Distribution Width 12.6 % (11.5-14.5); Red Blood Cell (RBC) Count 4.27 mill/uL (4.20-5.40); White Blood Cell (WBC) Count 8.3 thou/uL (4.8-10.8)
[2018-01-27 14:14] LABS: Bilirubin Negative (Negative); Blood, Urine Negative (Negative); Clarity CLEAR (Clear); Glucose, Urine (Dipstick) Negative (Negative); Leukocyte Negative (Negative); Nitrite Negative (Negative); Protein, Urine (Dipstick) Negative (Neg-Trace); Specific Gravity, Urine 1.008 (1.002-1.036); Urobilinogen 0.2 mg/dL (0.2-1.0); pH, Urine 6.5 (5.0-9.0)
[2018-01-27 14:15] LABS: Prothrombin Time 12.9 SEC (12.0-14.7)
[2018-01-27 14:21] LABS: Bacteria/HPF None Seen HPF (None Seen); Hyaline Casts/LPF 0-3 HYALINE CAST LPF (0-3 Hyaline); Pathc Cast-AUWi Flag 0.72 (0-2.49); RBC/HPF None Seen HPF (0-3); Squamous Epithelial 0-3 HPF (0-3); WBC/HPF None Seen HPF (0-3)
[2018-01-27 14:28] LABS: Anion Gap 10 mmol/L (10-20); BUN (Urea Nitrogen) 15 mg/dL (9.8-20.1); Calc. Creatinine Clearance 0 mL/min (70-130); Calcium 9.2 mg/dL (7.8-10.44); Carbon Dioxide 29 mmol/L (23-31); Chloride 104 mmol/L (98-107); Estimated GFR-MDRD 55; Glucose 83 mg/dL (80-115); Potassium 3.7 mmol/L (3.5-5.1); Sodium 139 mmol/L (136-145)
--- NOTE | 2018-01-27 14:37 | RAD ---
TWO VIEWS OF THE CHEST: Date: 01-27-18 Comparison: None. History: Pre-operative patient. FINDINGS: Post-operative clips overlie the lateral lower left hemithorax. Calcified granuloma overlies the righ t upper lobe region. Atherosclerotic calcification of the aortic arch noted. Heart and mediastinal co ntours are grossly unremarkable. No pneumothorax, pleural fluid, focal consolidation or alveolar marisol a. IMPRESSION: No acute findings. POS: [facility]
== END 2018-01-27 12:18 | disposition home or self-care (01) ==
LOC: LABBT 12:17
PROVIDERS: ATTEND Orthopaedic Surgery
DX: Z01.818 Encounter for other preprocedural examination (principal); M16.11 Unilateral primary osteoarthritis, right hip
CPT/HCPCS: 71046; 80048; 81001; 85025; 85610; 86850; 86900; 86901; 87081

== ENCOUNTER 2023-12-31 13:42 | Outpatient (CLI) | payer MEDICARE, OTHER | END 2023-12-31 13:43 | disposition home or self-care (01) | LOC: CT 13:42 | PROVIDERS: ATTEND Orthopaedic Surgery | DX: M17.12 Unilateral primary osteoarthritis, left knee (principal) ==

== ENCOUNTER 2024-01-03 08:49 | Outpatient (CLI) | payer MEDICARE, OTHER ==
[2024-01-03 10:51] LABS: #Basophils 0.04 10x3/uL (0.0-0.2); %Basophils 0.8 % (0.0-1.0); %Eosinophils 4.4 % (0.0-10.0); %Lymphocytes 33.1 % (21.0-51.0); %Monocytes 9.9 % (0.0-10.0); %Neutrophils 51.4 % (42.0-75.0); Hematocrit 39.9 % (36.0-47.0); Hemoglobin 12.8 g/dL (12.0-16.0); Mean Corpuscular HGB CONC 32.1 g/dL (32.0-36.0); Mean Corpuscular Hemoglobin 30.8 pg (27.0-31.0); Mean Corpuscular Volume 96.1 fL (78.0-98.0); Mean Platelet Volume 10.3 fL (7.4-10.4); Platelet Count 239 10x3/uL (130-400); RBC Distribution Width 13.2 % (11.5-14.5); Red Blood Cell (RBC) Count 4.15 mill/uL (4.20-5.40)
[2024-01-03 11:01] LABS: Bilirubin Negative (Negative); Blood, Urine Trace (Negative); Clarity Clear (Clear); Glucose, Urine (Dipstick) Normal (Negative); Ketone, Urine Negative (Negative); Leukocyte 250 Leu/uL (Negative); Nitrite Negative (Negative); Protein, Urine (Dipstick) Negative (Neg-Trace); Specific Gravity, Urine 1.003 (1.002-1.036); Urobilinogen Normal mg/dL (Less than 2); pH, Urine 6.5 (5.0-9.0)
[2024-01-03 11:11] LABS: INR-International Normal Ratio 1.1; Prothrombin Time 13.7 sec (12.0-14.7)
[2024-01-03 12:04] LABS: Anion Gap 13 mmol/L (10-20); BUN (Urea Nitrogen) 14 mg/dL (9.8-20.1); Calc. Creatinine Clearance 0 mL/min (70-130); Calcium 9.9 mg/dL (7.8-10.44); Carbon Dioxide 28 mmol/L (23-31); Chloride 100 mmol/L (98-107); Estimated GFR 67; Glucose 83 mg/dL (83-110); Potassium 3.8 mmol/L (3.5-5.1); Sodium 137 mmol/L (136-145)
== END 2024-01-03 08:50 | disposition home or self-care (01) ==
LOC: LABBT 08:49
PROVIDERS: ATTEND Orthopaedic Surgery
DX: Z01.818 Encounter for other preprocedural examination (principal); M17.12 Unilateral primary osteoarthritis, left knee
CPT/HCPCS: 71046; 80048; 81003; 85025; 85610; 87081; 93005; 93010

== ENCOUNTER 2024-01-05 05:29 | Inpatient (IN) | payer MEDICARE, OTHER ==
[2024-01-05] MEDS ORDERED: Vancomycin (BATCH) 1.5 GM/300 ML BAG ONE (06:33)
[2024-01-05] MEDS ORDERED: Tranexamic Acid 1,000 MG/10 ML VIAL ONE ×2 (06:33→09:45)
[2024-01-05] MEDS ORDERED: Sodium Chloride 0.9% 100 ML ONE (06:33)
[2024-01-05] MEDS ORDERED: Midazolam HCl 2 mg/2 ml Vial ONE (06:39)
[2024-01-05] MEDS ORDERED: fentaNYL 50 mcg/mL 1 mL Vial ONE ×2 (06:39→09:06)
[2024-01-05] MEDS ORDERED: PROPOFOL 20 ML ONE ×2 (06:48→08:20)
[2024-01-05] MEDS ORDERED: Ondansetron PF 4 MG/2 ML Vial ONE (06:48)
[2024-01-05] MEDS ORDERED: Dexamethasone 4 mg/ml Vial ONE (06:48)
[2024-01-05] MEDS ORDERED: fentaNYL PF 100 MCG/2 ML SYRINGE ONE (06:48)
[2024-01-05] MEDS ORDERED: Bupivacaine HCl 0.5%/Epinephrine 1:200,000/PF 30 ml Vial ONE (07:05)
[2024-01-05] MEDS ORDERED: Bupivacaine 0.25% HCL 30 ML VIAL ONE (07:13)
[2024-01-05] MEDS ORDERED: CEFAZOLIN 2 GM VIAL ONE (07:13)
[2024-01-05] MEDS ORDERED: MINERAL OIL/WHITE PETROLATUM 3.5 GM TUBE ONE (07:39)
[2024-01-05] MEDS ORDERED: PHENYLEPHRINE-NS 100 MCG/ML 10 ML SYRINGE ONE (07:45)
[2024-01-05] MEDS ORDERED: Promethazine HCl 25 MG/ML VIAL IM PRN ×3 (07:51→09:42)
[2024-01-05] MEDS ORDERED: Ondansetron HCl/PF 4 MG/2 ML Vial IVP PRN (07:51)
[2024-01-05] MEDS ORDERED: Ropivacaine 0.2% 550 ML 550 ML NERVE BLCK SCH (08:00)
[2024-01-05] MEDS ORDERED: traMADol HCl 50 MG TAB PO PRN (08:00)
[2024-01-05] MEDS ORDERED: fentaNYL 50 mcg/mL 1 mL Vial SLOW IVP PRN (08:00)
[2024-01-05] MEDS ORDERED: Zolpidem Tartrate 5 MG TAB PO PRN ×2 (08:00→09:42)
[2024-01-05] MEDS ORDERED: Ondansetron PF 4 MG/2 ML Vial IVP PRN (08:00)
[2024-01-05] MEDS ORDERED: Sevoflurane 250 ML INH ANEST BOTTLE ONE (08:07)
[2024-01-05] MEDS ORDERED: Bupivacaine PF 0.5% 30 ML VIAL ONE (08:08)
[2024-01-05] MEDS ORDERED: Lidocaine 1% (PF) 30 ML VIAL ONE (08:08)
[2024-01-05] MEDS ORDERED: HYDROmorphone 2 MG/ML VIAL ONE (09:41)
[2024-01-05] MEDS ORDERED: diphenhydrAMINE 25 MG CAP PO PRN (09:42)
[2024-01-05] MEDS ORDERED: Ketorolac Tromethamine 30 MG (1 mL) VIAL ONE (09:45)
[2024-01-05] MEDS ORDERED: Tranexamic Acid 1,000 MG in Sodium Chloride 0.9% 100 ML IVPB SCH (09:45)
[2024-01-05 13:31] VITALS: BMI 27.3
[2024-01-05] MEDS: HYDROcodone/Acetaminophen 10/325 mg Tablet PO PRN (15:21)
[2024-01-05] MEDS: CEFAZOLIN 2 GM in Sodium Chloride 0.9% 100 ML IVPB SCH (15:23)
[2024-01-05] MEDS: Ketorolac Tromethamine 30 MG (1 mL) VIAL IVP SCH (15:23)
[2024-01-05] MEDS: Sodium Chloride 0.9% 1,000 ML IV SCH (15:35)
[2024-01-05] MEDS: Ondansetron PF 4 MG/2 ML Vial IVP PRN (16:56)
[2024-01-05] MEDS: Vancomycin (BATCH) 1.5 GM in Premix 1 BAG IVPB SCH (18:00)
[2024-01-05] MEDS: Calcium Carbonate 600 MG + Vit D TAB PO SCH (21:04)
[2024-01-05] MEDS: Gabapentin 300 MG CAP PO SCH (21:05)
[2024-01-05] MEDS: Aspirin 81 mg Enteric Coated Tablet PO SCH (21:06)
[2024-01-05] MEDS: Carvedilol 6.25 MG TAB PO SCH (21:06)
[2024-01-05] MEDS: Amitriptyline HCl 25 MG TAB PO SCH (21:07)
[2024-01-05] MEDS: traMADol HCl 50 MG TAB PO PRN (21:15)
[2024-01-05] MEDS: sulfaSALAzine 500 MG TAB PO SCH (23:31)
[2024-01-06] MEDS: HYDROcodone/Acetaminophen 10/325 mg Tablet PO PRN (01:55)
[2024-01-06 05:56] LABS: Hematocrit 29.8 % (36.0-47.0); Hemoglobin 9.4 g/dL (12.0-16.0); Mean Corpuscular HGB CONC 31.5 g/dL (32.0-36.0); Mean Corpuscular Hemoglobin 30.3 pg (27.0-31.0); Mean Corpuscular Volume 96.1 fL (78.0-98.0); Mean Platelet Volume 10.1 fL (7.4-10.4); Platelet Count 182 10x3/uL (130-400); RBC Distribution Width 13.3 % (11.5-14.5)
[2024-01-06] MEDS: Digoxin 0.125 MG TAB PO SCH (08:53)
[2024-01-06] MEDS: Ferrous Gluconate 324 MG TAB PO SCH (08:53)
[2024-01-06] MEDS: Senokot S 8.6-50 MG TAB PO SCH (08:53)
[2024-01-06] MEDS: Cholecalciferol 1,000 UNITS (25 MCG) TAB PO SCH (08:53)
[2024-01-06] MEDS: Folic Acid 1 MG TAB PO SCH (08:54)
[2024-01-06] MEDS: CeleCOXIB 100 MG CAP PO SCH (08:54)
[2024-01-06] MEDS: Multivitamin W/ Minerals 1 TAB PO SCH (08:55)
[2024-01-06] MEDS: Furosemide 20 MG TAB PO SCH (08:55)
[2024-01-06] MEDS: Pantoprazole DR 40 MG TAB PO SCH (08:55)
[2024-01-06] MEDS: Gabapentin 300 MG CAP PO SCH (08:55)
[2024-01-06] MEDS: Lisinopril 2.5 MG TAB PO SCH (08:58)
[2024-01-06] MEDS: FLU (Fluad Triv) TS24-25 (65UP)/MF59C/PF 45 MCG/0.5 ML Syringe IM ONE (09:57)
[2024-01-06] MEDS: Acetaminophen 325 MG TAB PO PRN (13:13)
[2024-01-07 05:46] LABS: Hematocrit 26.9 % (36.0-47.0); Hemoglobin 8.7 g/dL (12.0-16.0); Mean Corpuscular HGB CONC 32.3 g/dL (32.0-36.0); Mean Corpuscular Hemoglobin 31.2 pg (27.0-31.0); Mean Corpuscular Volume 96.4 fL (78.0-98.0); Mean Platelet Volume 10.2 fL (7.4-10.4); Platelet Count 167 10x3/uL (130-400); RBC Distribution Width 13.3 % (11.5-14.5); Red Blood Cell (RBC) Count 2.79 mill/uL (4.20-5.40)
[2024-01-07] MEDS: Ketorolac Tromethamine 30 MG (1 mL) VIAL IVP SCH (10:08)
[2024-01-07 12:42] VITALS: BP 114/71; TEMP 98.1
== END 2024-01-07 13:59 | disposition home health service (06) | DRG 470 ==
LOC: SDC 05:29 → SURG B 12:35 → SDC 13:30 → SURG B 13:30 → OBSVTOIN 01-06 12:53
PROVIDERS: ADMIT Orthopaedic Surgery; ATTEND Orthopaedic Surgery
PROC: 0SRD0J9 Replacement of Left Knee Joint with Synthetic Substitute, Cemented, Open Approach (ICD-10-PCS; principal; 2024-01-05)
DX: M17.12 Unilateral primary osteoarthritis, left knee (principal)
CPT/HCPCS: 36415; 85027; 88305; 96374; 96375; 96376; A4306; C1713; C1776; C1889; G0378; J0665; J1100; J1885; J2250; J2405; J2704; J2795; J3010; J3370